=== PATIENT | male | born 1975 | race Caucasian/White ===

== ENCOUNTER 2023-11-05 20:50 | Inpatient (IN) | payer OTHER, SELFPAY ==
[2023-11-05 16:08] VITALS: BP 108/57; BMI 33.5
[2023-11-05 16:39] LABS: % Basophils 0.2 % (0-2); % Eosinophils 0.4 % (0-6); % Immature Granulocytes 0.4 % (0-0.5); % Lymphocytes 6.6 % (20.5-51.1); % Monocytes 9.2 % (1.7-9.3); % Neutrophils 83.2 % (42.2-75.2); Absolute Eosinophils 0.1 10^3/uL (0-0.7); Absolute Immature Granulocytes 0.1 10^3/uL (0-0.05); Absolute Lymphocytes 0.9 10^3/uL (1.2-3.4); Absolute Monocytes 1.3 10^3/uL (0.1-0.6); Absolute Neutrophils 11.3 10^3/uL (1.4-6.5); Hematocrit 42.4 % (39.0-52.0); Hemoglobin 14.3 g/dL (13.0-18.0); Mean Corp Hgb Conc. 33.7 g/dL (33.0-37.0); Mean Corpuscular Hgb 31.6 pg (27.0-31.0); Mean Corpuscular Volume 93.6 fL (80.0-94.0); Mean Platelet Volume 9.5 fL (7.4-10.4); Nucleated Red Blood Cells % 0 % (-); Platelet Count 347 10^3/uL (130-400); Red Blood Cell Count 4.53 10^6/uL (4.70-6.10); Red Cell Dist. Width 12.7 % (11.5-14.5); White Blood Cell Count 13.6 10^3/uL (4.8-10.8)
[2023-11-05 16:48] LABS: Alcohol None Detected; Blood Urea Nitrogen 36 mg/dl (9-20); Calcium 10.8 mg/dl (8.4-10.2); Carbon Dioxide 30 mmol/L (22-30); Chloride 97 mmol/L (98-107); Estimated Creatinine Clearance 18 ml/min; Glucose 142 mg/dl (70-99); Potassium 4.2 mmol/L (3.5-5.1); Sodium 137 mmol/L (135-145); eGFR 11.36
[2023-11-05 17:01] LABS: COVID-19 Antigen Negative (Negative)
--- NOTE | 2023-11-05 17:51 | ED.GENMED ---
History of Present Illness
General
Chief Complaint: Psychiatric Problem
Time Seen by Provider: 11/05/23 17:17
Travel History
Have you had any contact with someone who has COVID-19?: No
Do you have any symptoms of coronavirus? Fever > 100 degrees, chills, cough, shortness of breath, sore throat, loss of taste or smell, muscle aches, or headache?: No
History of Present Illness
History of Present Illness:
Patient presents to the emergency department with suicidal ideation and depressive symptoms. He notes that he was kicked out of his facility today after they found alcohol in his urine. States that he has been having numerous symptoms including
allergic symptoms and nasal congestion. States that he is here to voluntarily commit himself for psychiatric evaluation. He endorses overdosing on his blood pressure medicine as well as a Seroquel 2 days ago. States he took 200 of his losartan at
about 200 of his Seroquel. Denies any gigi pain. Denies any difficulty urinating. Denies any extremity edema.
Past History
Past History
ED Past Medical History: Asthma, HTN and Other (Scarlet fever)
ED Past Surgical History: None
Social History
Tobacco: Smoker
Alcohol: Occasional
Drug: None
Personal: Single
Living: alone
Phy Exam
Physical Exam
Physical Exam:
GENERAL APPEARANCE: NAD, well developed/ well nourished, poorly groomed
EYES lids/conjunctiva normal
EARS/NOSE/THROAT Mucous membranes moist, uvula midline without oral pharyngeal erythema, exudate or swelling
HEAD/NECK normocephalic atraumatic, neck is supple.
RESPIRATORY respiratory effort normal, speaks in full sentences, no accessory muscle use. Lungs clear to auscultation without rhonchi, wheezes, rales
CARDIAC tachycardia, no edema,
ABDOMINAL Soft, ND/NT. No pulsatile masses on exam, rebound tenderness, Shearer sign or pain over Mcburney's point.
MUSCLES/EXTREMITIES No abnormal range of motion, no swelling.
SKIN Warm, pink and dry. No rashes
NEUROLOGICAL Speech is clear and appropriate. Normal level of consciousness. 5/5 strength in all extremities.
PSYCH Normal mood and affect. Judgement/competence is appropriate, endorses SI
Course
Orders/Labs/Results
Orders:
Orders
11/05/23 16:14
1:1 Observation - Suicide/ Violent Behavior As Directed
11/05/23 16:16
EKG [Electrocardiogram (*1)] Urgent
Reason for Study: PreOp
EKG- Treatment ONCE
11/05/23 16:27
Alcohol Urgent
Basic Metabolic Panel Urgent
COVID-19 Antigen Urgent
Source: Nasal Swab
Complete Blood Count/With Diff Urgent
11/05/23 17:47
Urinalysis Reflex To Culture Urgent
Urine Drug Abuse Screen Urgent
0.9% Sodium Chloride 1000 ml [Nss] 1,000 ml IV BOLUS
11/05/23 17:48
Electrocardiogram (*1) Stat
Reason for Study: Other
Other Reason for Exam: overdose
11/05/23 18:10
Acetaminophen Urgent
Comprehensive Metabolic Panel Urgent
PTT Urgent
Salicylate Urgent
Total CK [Creatine Phosphokinase] Urgent
11/05/23 18:42
Urine Creatinine Urgent
Urine Sodium Urgent
Renal & Bladder US [US Renal With Bladder] Urgent
Comment:
Reason For Exam: venkata
11/05/23 18:44
Bladder Scan As Directed
Follow Bladder Retention/Intermittent Cath Algorithm?: Yes
PRN if no void in __ hours: 6
Frequency: Per Retention Algorithm
If Bladder Scan Result >: 400
then:: Straight cath
Straight Cath As Directed
Frequency: Per Retention Algorithm
Additional Instructions: straight cath as needed per acute urinary retention algorithm for 24 hrs
Additional Instructions: for bladder scan greater than 400 mL
Abnormal Lab Results
11/05/23 11/05/23
16:27 18:10
WBC 13.6 H 10^3/uL
(4.8-10.8)
RBC 4.53 L 10^6/uL
(4.70-6.10)
MCH 31.6 H pg
(27.0-31.0)
Abs Immat Gran (auto) 0.1 H 10^3/uL
(0-0.05)
Absolute Neuts (auto) 11.3 H 10^3/uL
(1.4-6.5)
Absolute Lymphs (auto) 0.9 L 10^3/uL
(1.2-3.4)
Absolute Monos (auto) 1.3 H 10^3/uL
(0.1-0.6)
Neutrophils % 83.2 H %
(42.2-75.2)
Lymphocytes % 6.6 L %
(20.5-51.1)
Chloride 97 L mmol/L 97 L mmol/L
(98-107) (98-107)
BUN 36 H mg/dl 37 H mg/dl
(9-20) (9-20)
Creatinine 5.7 H* mg/dL 5.8 H* mg/dL
(0.7-1.3) (0.7-1.3)
Glucose 142 H mg/dl 126 H mg/dl
(70-99) (70-99)
Calcium 10.8 H mg/dl 11.4 H mg/dl
(8.4-10.2) (8.4-10.2)
AST 64 H U/L
(17-59)
ALT 91 H U/L
(0-50)
Salicylates < 1.0 L mg/dl
(2.0-20.0)
Acetaminophen < 10 L ug/ml
(10-30)
11/05/23 16:27
11/05/23 18:10
Vital Signs
Initial and Last Documented VS:
Initial Vital Signs
Temp Pulse Resp BP Pulse Ox
98.5 F 103 22 108/57 99
11/05/23 16:08 11/05/23 16:08 11/05/23 16:08 11/05/23 16:08 11/05/23 16:08
Last Documented Vital Signs
Temp Pulse Resp BP Pulse Ox
98.5 F 103 22 108/57 99
11/05/23 16:08 11/05/23 16:08 11/05/23 16:11/05/23 16:08 11/05/23 16:08
*Critical Care Note
Total Time (30-74mins, 75-104mins- exclusive of procedures): Not Applicable
ED Attending Note
ED Attending Note
ED Attending Note:
hx of asthma, HTN, dpression and anxiety
got kicked out of [facility] today after they found alcohol in his urine
presents here requesting 201 for voluntary commission
however, he states he took 270 100mg losartan tabs and 40 25mg seroquel (alternating story) on Friday in a suicide attempt
no evidence of acute toxicity given lack of hypotension, hypertonia/NMS symptoms
labs are showing VENKATA with bun/creatinine of 37/5.8, bicarb is 30, patient is making urine, no indication for emergent dialysis
he looks well overall. normal BP, slightly tachycardic around 100. EKG with normal qtc and CO interval, normal QRS duration
possible intrinsic renal disease from overdose vs hypotensive 2 days ago and possibly had ATN
giving IV fluids, renal US pending, send urine studies
salicylates and acetaminophen levels negative
will likely need nephro consult
admitted to hospitalist for further management
-
Portions of this chart may have been created with voice recognition software.� Occasional wrong word or��sound alike� substitutions may have occurred due to the inherent limitations of voice recognition software.
Discharge Plan
Departure
Patient Disposition: Admit
Date of Disposition: 11/05/23
Time of Disposition: 19:29
Admit to doctor: Fabrizio
Presentation/result/management discussed w/ accepting MD/DO: Hospitalist
Patient with high blood pressure during this ER visit?: No
Discharge Problem:
VENKATA (acute kidney injury), Depression
Prescriptions:
No Action
amlodipine 5 MG tablet
5 mg PO DAILY
albuterol sulfate 1 PUFF HFA aerosol inhaler
2 puff inhalation R Q4HPRN PRN (Reason: sob)
fluticasone propionate 1 SPRAY spray,suspension
1 spray intranasal DAILYPRN PRN (Reason: congestion)
quetiapine 25 mg Tablet
25 mg PO HS
losartan-hydrochlorothiazide 100-25 mg Tablet
1 tab PO DAILY
escitalopram oxalate 10 mg Tablet
10 mg PO DAILY
Dulera 100-5 mcg/actuation Hfa Aerosol Inhaler
2 puff INHALATION R BID
budesonide 0.5 MG/2 ML suspension for nebulization
0.5 mg inhalation R DAILY
Referrals:
Samir Ayala MD [Family Provider] -
Interventions
Interventions:
*Risk Screen - Suicide Last Done: 11/05/23 16:08
*General Assessment Last Done: 11/05/23 18:18
*Neglect/Abuse Screening Last Done: 11/05/23 16:08
ED- Fall Risk Assessment Last Done: 11/05/23 16:08
*ED COVID-19 Vaccine History Last Done: 11/05/23 18:18
ED-Psychological Assessment Last Done: 11/05/23 18:29
Discharge Date and Time
Print Language: HUNGARIAN
[2023-11-05] MEDS: NSS 1000 IV ×2 (18:11→23:20)
[2023-11-05 18:36] LABS: ALT (SGPT) 91 U/L (0-50); AST (SGOT) 64 U/L (17-59); Acetaminophen < 10 ug/ml (10-30); Albumin 4.1 g/dl (3.5-5.0); Alkaline Phosphatase 124 U/L (38-126); Blood Urea Nitrogen 37 mg/dl (9-20); Calcium 11.4 mg/dl (8.4-10.2); Carbon Dioxide 30 mmol/L (22-30); Chloride 97 mmol/L (98-107); Creatine Phosphokinase 78 U/L (55-170); Estimated Creatinine Clearance 17 ml/min; Glucose 126 mg/dl (70-99); Salicylate < 1.0 mg/dl (2.0-20.0); Sodium 135 mmol/L (135-145); Total Bilirubin 1.1 mg/dl (0.2-1.3); Total Protein 6.9 g/dl (6.3-8.2); eGFR 11.12
[2023-11-05 18:39] LABS: APTT 28.8 Sec (23.4-35.0)
--- NOTE | 2023-11-05 20:31 | HPS.HSE ---
Addendum entered and electronically signed by Hamilton Dinh DO 11/05/23 22:43:
Patient seen and examined independently. Agree with findings and plan as set forth by Lore Moss PA-C.
Patient is a 48y M with PMH significant for hypertension and depression / PTSD who presents to ED requesting voluntary psychiatric evaluation. Patient was most recently a resident at [facility]. He states that he was ejected from
that facility today - apparently for having alcohol in a urine sample. Patient notes that he took a large amount of pills on FRIDAY in an attempt to end his life. He states that he took #270 tabs of losartan/HCT and #40 tabs of quetiapine late
Friday evening. He states that he slept all day on Friday, but then notes that he actually had several appointments and interacted with several people throughout the day on Friday. he also notes that he developed N/V/D and had multiple bouts of
emesis and loose stool Friday.
Patient notes prior suicide attempts including ingestions and strangulation.
He currently denies active suicidal ideation and is her to voluntarily seek psychiatric assistance.
Evaluation in the ED reveals patient to have significant VENKATA.
Ass:
VENKATA - Likely due to ARB overdose +/- hypotension and ATN due to meds and volume losses
Hypercalcemia
Prolonged QTc
N/V/D - Likely med induced / overdose induced
Intentional Overdose
Major Depression / PTSD
Benign Hypertension
Asthma without Acute Exacerbation
Plan:
Admit for further evaluation and treatment.
Hold any further losartan / HCT as well as other BP medications.
IVFs overnight.
Renal US is unremarkable.
Nephrology evaluation.
Follow for improvement in labs / lytes.
Hold QT prolonging medications as well for now.
Monitor on telemetry.
Psych evaluation in the AM.
1:1 pending Psych eval.
Original Note:
Family Physician
-
Family Physician: Samir Ayala
Chief Complaint
-
Depression
History of Present Illness
This is a 48 year old male with a past medical history of anxiety, depression, PTSD, hypertension, asthma, and prior suicide attempt in 2022 who presents to the ED requesting a psychiatric evaluation due to ongoing suicidal ideation and recent
suicide attempt. He states he consumed 270 pills losartan 100mg and 40 pills of Seroquel 20mg two days ago. He admits to vomiting and diarrhea after consuming the medications. He also admits to hallucination after consumption. He is not able to tell
if he has changes in urination due to his focus being primarily on episodes of vomiting and diarrhea which have been occurring concurrently to urination. He reports attempting to drink fluids as feels very thirsty. He denies any prior history of
kidney problems.
Medical History
Past Medical History
Past Medical History: Reports Other
Additional Past Medical History:
Anxiety / Depression / PTSD
Essential Hypertension
Asthma
Past Surgical History: Reports None
Social History
Tobacco: Other (Occasional Cigarette)
Alcohol: Occasional
Family History
Family History: Not pertinent
Allergies / Home Medications
Allergies reflects when Allergies were last updated in [employer].
Home Medications with original date entered in [employer]
Allergy/Medication List:
Allergies
Allergy/AdvReac Type Severity Reaction Status Date / Time
No Known Allergies Allergy Verified 11/05/23 16:07
Home Medications
albuterol sulfate 90 mcg/actuation aerosol inhaler 2 puff inhalation R Q4HPRN PRN sob 01/29/21
amlodipine 5 mg tablet 5 mg PO DAILY Blood pressure 01/29/21
fluticasone propionate 50 mcg/actuation nasal spray,suspension 1 spray intranasal DAILYPRN PRN congestion 01/29/21
budesonide 0.5 mg/2 mL suspension for nebulization 0.5 mg inhalation R DAILY 11/05/23
escitalopram oxalate 10 mg tablet 10 mg PO DAILY 11/05/23
losartan 100 mg-hydrochlorothiazide 25 mg tablet 1 tab PO DAILY 11/05/23
mometasone-formoterol HFA 100 mcg-5 mcg/actuation aerosol inhaler (Dulera) 2 puff inhalation R BID 11/05/23
quetiapine 25 mg tablet 25 mg PO HS sleep 11/05/23
Review of Systems
-
A 12 point ROS was completed and negative except as noted: Yes
Constitutional: Denies Fever or Chills
Respiratory: Denies Cough or Trouble Breathing
Cardiac: Denies Chest Pain or Palpitations
Abdomen/GI: Reports Nausea, Vomiting and Diarrhea; Denies Abdominal Pain
Physical Exam
Vital Signs
Vital Signs
Temp Pulse Resp BP Pulse Ox
98.5 F 103 22 108/57 99
11/05/23 16:08 11/05/23 16:08 11/05/23 16:08 11/05/23 16:08 11/05/23 16:08
Physical Exam
General: Comfortable and Conversant
HEENT: Moist mucous membranes and Atraumatic
Respiratory: Clear and Non Labored Respirations
Cardiac: S1/S2 and Regular Rhythm
GI: Soft, Non Tender and Other (Protuberant)
Rectal: Deferred by Provider
Musculoskeletal: No Clubbing, No Cyanosis and No Edema
Skin: Warm and Dry
Neuro: Awake, Alert, Oriented and Nonfocal/grossly intact
Laboratory Results
-
11/05/23 16:27
11/05/23 18:10
Laboratory Results
APTT 28.8 Sec (23.4-35.0) 11/05/23 18:10
Total Bilirubin 1.1 mg/dl (0.2-1.3) 11/05/23 18:10
AST 64 U/L (17-59) H 11/05/23 18:10
ALT 91 U/L (0-50) H 11/05/23 18:10
Alkaline Phosphatase 124 U/L (38-126) 11/05/23 18:10
Data Reviewed
-
Lab Data: Labs Reviewed by me
Impression/Plan
-
Acute Kidney Injury
-Consult Nephrology
-Place Culver catheter
-Continue IVFs
Hypercalcemia
-Stop HCTZ
-Continue IVFs
-If calcium remains elevated proceed with additional work-up
Prolonged QT
-Monitor on Telemetry
-Recheck ECG in AM
-Avoid QT prolonging medications
Depression with Recent Suicide Attempt
-Consult Psych
-Continue 1:1 Observation
-Hold Lexapro and Seroquel until seen by Psych
Essential Hypertension
-Hold lisinopril/HCTZ due to VENKATA
-Hold amlodipine for now - Can resume if BP begins to trend upwards
Asthma, no acute exacerbation
-Continue Dulera
DVT proph: SC Heparin
Code Status: Full Code
[2023-11-05 21:15] LABS: Urine Albumin Trace (Neg - Trace); Urine Bilirubin 1+ (Negative); Urine Character Clear (Clear); Urine Color Yellow; Urine Glucose Negative (Negative); Urine Ketone Negative (Negative); Urine Leukocyte Trace (Negative); Urine Nitrite Negative (Negative); Urine Occult Blood Trace (Negative); Urine Urobilinogen Negative (Neg - 1+); Urine pH 6.5 (5.0-9.0)
[2023-11-05 21:23] LABS: Urine Squamous Cell 0-2 /LPF (Few)
[2023-11-05 21:24] LABS: Urine Red Blood Cell 0-2 /HPF (0-2)
[2023-11-05 21:25] LABS: Amphetamines Negative (Negative); Barbiturates Negative (Negative); Benzodiazepines Negative (Negative); Buprenorphine Negative (Negative); Cocaine Negative (Negative); Marijuana Negative (Negative); Methadone Negative (Negative); Methamphetamines Negative (Negative); Opiates Negative (Negative); Phencyclidine Negative (Negative); Tricyclic Antidepressants Positive (Negative)
[2023-11-05 21:29] LABS: Urine Sodium 66 mmol/L (30-90)
[2023-11-05 21:48] VITALS: BP 130/87; BMI 33.6
[2023-11-05] MEDS: VENTOLIN NEBULES 2.5 MG INH (23:12)
[2023-11-05] MEDS: HEPARIN 5000 UNITS SC (23:32)
[2023-11-05 23:55] VITALS: BP 113/87
--- NOTE | 2023-11-06 01:35 | PTCARENOTE ---
Pt received from ED around 2134 via w/staff for 1:1 obsveration. AAOx3, tangential speech. Telemetry - SR w/BBC (ST at times). Admission and assessment completed. Plan of care discussed. Oriented to environment. Pt denies suicidal ideation
at present, expresses desire for help. 16 F burrows catheter placed without difficulty using sterile technique. Pt tolerated. Clear yellow urine observed. IVF running via #20 RAC without complication. Safe environment maintainted. Plan of care
ongoing.
[2023-11-06 03:21] VITALS: BP 110/85
[2023-11-06] MEDS: NSS 1000 IV ×2 (06:23→16:19)
[2023-11-06 07:18] LABS: Hematocrit 38.5 % (39.0-52.0); Hemoglobin 12.6 g/dL (13.0-18.0); Mean Corp Hgb Conc. 32.7 g/dL (33.0-37.0); Mean Corpuscular Hgb 31.3 pg (27.0-31.0); Mean Corpuscular Volume 95.8 fL (80.0-94.0); Mean Platelet Volume 9.6 fL (7.4-10.4); Platelet Count 268 10^3/uL (130-400); Red Blood Cell Count 4.02 10^6/uL (4.70-6.10); Red Cell Dist. Width 12.7 % (11.5-14.5)
[2023-11-06] MEDS: VENTOLIN NEBULES 2.5 MG INH (07:33)
[2023-11-06] MEDS: SYMBICORT 80/4.5 MCG INHALER INH ×2 (07:33→07:47)
[2023-11-06] MEDS: PULMICORT 0.5 MG INH (07:33)
[2023-11-06 07:45] LABS: Blood Urea Nitrogen 39 mg/dl (9-20); Calcium 10.3 mg/dl (8.4-10.2); Carbon Dioxide 31 mmol/L (22-30); Chloride 100 mmol/L (98-107); Estimated Creatinine Clearance 18 ml/min; Glucose 109 mg/dl (70-99); Magnesium 2.2 mg/dl (1.6-2.3); Phosphorus 6.4 mg/dl (2.5-4.5); Potassium 4.5 mmol/L (3.5-5.1); Sodium 137 mmol/L (135-145); eGFR 11.36
[2023-11-06 07:55] VITALS: BP 147/86
[2023-11-06] MEDS: HEPARIN 5000 UNITS SC ×2 (09:55→16:19)
--- NOTE | 2023-11-06 10:42 | CON.MD ---
Addendum entered and electronically signed by Stefano Davis MD 11/06/23 11:24:
check b12 and folate given macrocytosis.
Original Note:
Consultation - Medical
-
patient seen chart reviewed. patient is a 48 yo male w hx of depression anxiety and ptsd. 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 he made a suicide attempt a year ago via pills and was hosp last year. he had been living at
[facility] which is a fairly independent facility. he had had several violations of the no etoh rule and was evicted.. he admits to once in a while adding vodka to his iced tea but the straw that broke the camel's back was staff finding
a bottle of etoh he hadn't opened yet. i did talk brioefly w [facility] staff who verify this. he did have a cm but was fearful they would not help him in time and that he would be homeless. he 'wanted to sleep and not wake up' and overdosed .he changed
his mind about eternal sleep and sought hospitalization. he was found to have serious sequelae from od of losartan and seroquel (creatinine over five). he is no longer suicidal and is interested in psych hosp when med cleared. patient has issues w
sleep appetite is good. no psychosis his enjoyment is hampered by life stresses, anxiety. has ptsd sx of nightmares flashbacks although less frequent than years past
past psych hx was being followed at [facility]. was taking he thinks lexapro along w seroquel for sleep one hosp see above.
medical hx acute kidney failure cr over five ecg w long qtc psoriasis obesity justin asthma htn gerd transaminases sl elevated likely this and cr due to od tox + for tca often a false +
family hx adopted
substance abuse etoh last use mid september. says there were periods in his life where he would drink alcoholically but in the distant past. denies other substance abuse. see above never had dt's or sz
social resides at [facility]. 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 no family support. mom and bro . div had a gf but she was etoh abuser. no hx physical or sexual trauma. some legal hx in the past
mse patient was awakened from sleep . was very cooperative. he is a bit on the sleepy side but could adequately participate in interview. speech nl rate and tone goal oriented no psychosis affect ok mood is depressed and anxious denies si and i
do believe him at this point aver intelligence insight judgment impaired
dx unspecified depression ptsd hx etoh abuse
recommendations can dc one to one. do not see patient as suicide risk at present. he is cooperative verbalizing need and desire for rx. will need to get through medical rx at this point given creatinine which hopefully will improve. no psych
meds presribed at present. could use ativan prn anxiety /agitation. continue melatonin for sleep. ultimately would seek psych hosp when medically cleared. will follow
[2023-11-06 11:28] VITALS: BP 140/97
--- NOTE | 2023-11-06 11:54 | W.PN.HOSP.TC ---
Today's Communication/Plan
-
Continue holding antihypertensives
Continue to monitor, no need for 1:1 sitter as per psychiatry
Appreciate nephrology and psychiatry
Assessment / Plan
Assessment / Plan
Physical Exam
General: Not in acute distress
HEENT: Normocephalic
Respiratory: Clear to Auscultation Bilaterally
Cardiac: S1/S2 and Regular Rhythm
GI: Soft, Non Tender. Positive bowel sounds.
Musculoskeletal: No Cyanosis and No Edema
Skin: Warm and Dry
Neuro: Awake, Alert, Oriented and Nonfocal/grossly intact

Assessment/Plan
Acute Kidney Injury
-Creatinine baseline 1.1, now 5.7
-Nephrology consulted, recommendations appreciated
-Continue Culver Catheter
-Continue IV Fluids
-No hydronephrosis on renal ultrasound
ARB, HCTZ, and Seroquel overdose
Hypercalcemia
Hyperphosphatemia
-Stop HCTZ
-Continue IVFs
-Vitamin D and PTH levels
-Nephrology consulted
Depression with Recent Suicide Attempt
-Psychiatry consulted, recommendations appreciated
-No 1:1 sitter needed at this time
-Hold Lexapro and Seroquel until seen by Psych
Macrocytic Anemia
-Check Vitamin B12 and Folate levels
Prolonged QT
-Monitor on Telemetry
-Recheck ECG in AM
-Avoid QT prolonging medications
Essential Hypertension
-Hold lisinopril/HCTZ due to VENKATA
-Hold amlodipine for now - Can resume if BP begins to trend upwards
Asthma, no acute exacerbation
-Continue Dulera
DVT proph: SC Heparin
Code Status: Full Code
Anticipated Discharge: 24 - 48 hours
Subjective/Interval History
-
Date of Service: November 06, 2023
Patient was seen and examined. He was sleeping at the time he was seen, no new significant symptoms or complaints reported.
Objective Data
-
Labs:
Laboratory Results
11/06/23
06:30
WBC 10.0
Hgb 12.6 L
Hct 38.5 L
Plt Count 268 D
Sodium 137
Potassium 4.5
Chloride 100
Carbon Dioxide 31 H
BUN 39 H
Creatinine 5.7 H*
Glucose 109 H
Calcium 10.3 H
Vital Signs:
Vital Signs
Temp Pulse Resp BP Pulse Ox
98.4 F 81 16 140/97 94
11/06/23 11:28 11/06/23 11:28 11/06/23 11:28 11/06/23 11:28 11/06/23 11:28
I&O
11/05/23 11/06/23 11/07/23
06:59 06:59 06:59
Intake Total 2200 / 2200
Output Total 752 / 752
Balance 1448 / 1448
--- NOTE | 2023-11-06 11:56 | W.CON.NEPH ---
Addendum entered and electronically signed by Bridget Severino MD 11/06/23 15:46:
during the visit pt wishes no life sustaining measures such as [employer] but he would like to speak to his family preservation caseworker(out pt) to make decision
Original Note:
Consultation
-
Date/Time Consultation Requested: 11/05/234
Date/Time Consultation Performed: 11/06/23 1145
Requesting Provider: Hamilton Delacruz
Performing Provider: Bridget Friedman
Reason for Consultation: VENKATA
Medical History
-
Chief Complaint: Depression
History of Present Illness:
Patient is a 48y M with PMH significant for hypertension on Losartan,HCTZ, AMlodipine, and depression / PTSD on Lexapro, Seroquel, Asthma on inhalers who presents to ED requesting voluntary psychiatric evaluation on 11/04. Patient was most
recently a resident at [facility]. He states that he was ejected from that facility today - apparently for having alcohol in a urine sample. Patient notes that he took a large amount of pills on FRIDAY in an attempt to end his life.
He states that he took #270 tabs of losartan/HCT and #40 tabs of quetiapine late Friday evening. He states that he slept all day on Friday, but then notes that he actually had several appointments and interacted with several people throughout the
day on Friday. he also notes that he developed N/V/D and had multiple bouts of emesis and loose stool Friday with decreased po intake.
Patient notes prior suicide attempts including ingestions and strangulation.
He currently denies active suicidal ideation and is her to voluntarily seek psychiatric assistance.
Evaluation in the ED reveals patient to have significant VENKATA cr of 5.8. He has no active n/v today. no abd pain or cp or sob. NO fever or cough.
Past Medical History
anxiety, depression, PTSD, hypertension, asthma, and prior suicide attempt in 2022
Past Surgical History: None
Social History
Tobacco: Other (occasional cigerette)
Alcohol: Occasional (previously heavy)
Family History
adopted
Family History: Not Pertinent
Allergies / Home Medications
Allergy/AdvReac Type Severity Reaction Status Date / Time
No Known Allergies Allergy Verified 11/05/23 16:07
�Medication �Instructions �Recorded �Confirmed �Type
albuterol sulfate 90 mcg/actuation 2 puff inhalation R Q4HPRN PRN sob 01/29/21 11/05/23 History
aerosol inhaler
amlodipine 5 mg tablet 5 mg PO DAILY Blood pressure 01/29/21 11/05/23 History
fluticasone propionate 50 1 spray intranasal DAILYPRN PRN 01/29/21 11/05/23 History
mcg/actuation nasal congestion
spray,suspension
budesonide 0.5 mg/2 mL suspension 0.5 mg inhalation R DAILY 11/05/23 11/05/23 History
for nebulization
escitalopram oxalate 10 mg tablet 10 mg PO DAILY 11/05/23 11/05/23 History
losartan 100 1 tab PO DAILY 11/05/23 11/05/23 History
mg-hydrochlorothiazide 25 mg tablet
mometasone-formoterol HFA 100 2 puff inhalation R BID 11/05/23 11/05/23 History
mcg-5 mcg/actuation aerosol
inhaler (Dulera)
quetiapine 25 mg tablet 25 mg PO HS sleep 11/05/23 11/05/23 History
Review of Systems
-
All complete 12 point ROS have been inquired and found negative other than stated in HPI
Physical Exam
Vital Signs
Vital Signs
Temp Pulse Resp BP Pulse Ox
98.4 F 81 16 140/97 94
11/06/23 11:28 11/06/23 11:28 11/06/23 11:28 11/06/23 11:28 11/06/23 11:28
Lab Results
WBC 10.0 10^3/uL (4.8-10.8) 11/06/23 06:30
RBC 4.02 10^6/uL (4.70-6.10) L 11/06/23 06:30
Hgb 12.6 g/dL (13.0-18.0) L 11/06/23 06:30
Hct 38.5 % (39.0-52.0) L 11/06/23 06:30
Plt Count 268 10^3/uL (130-400) D 11/06/23 06:30
Sodium 137 mmol/L (135-145) 11/06/23 06:30
Potassium 4.5 mmol/L (3.5-5.1) 11/06/23 06:30
Chloride 100 mmol/L (98-107) 11/06/23 06:30
Carbon Dioxide 31 mmol/L (22-30) H 11/06/23 06:30
BUN 39 mg/dl (9-20) H 11/06/23 06:30
Creatinine 5.7 mg/dL (0.7-1.3) H* 11/06/23 06:30
eGFR 11.36 11/06/23 06:30
Glucose 109 mg/dl (70-99) H 11/06/23 06:30
Calcium 10.3 mg/dl (8.4-10.2) H 11/06/23 06:30
Phosphorus 6.4 mg/dl (2.5-4.5) H 11/06/23 06:30
Albumin 4.1 g/dl (3.5-5.0) 11/05/23 18:10
Renal US:
Rt 10.9cm, left 12.1cm
IMPRESSION: Normal appearance of both kidneys.
Bladder is not distended. Left ureteral jet is visualized, but right ureteral jet is not visualized.
Incidental note of cholelithiasis.
Physical Exam
General: Awake, Alert, Oriented, AOx3 and No Distress
HEENT: EOMI, Anicteric and Conjunctivae Clear
Respiratory: Clear, Normal Excursion and Nonlabored Respirations
Cardiac: S1/S2 and Regular Rate/Rhythm
Breast: Deferred by me
Abdomen: Soft, Nontender and Nondistended
Musculoskeletal: No Cyanosis and No Edema
Skin: Other (seborrhic dermatitis on face)
Neuro: Nonfocal/Grossly Intact
Psych: Mood/afflect pleasant and Appropriate
Data Reviewed
-
Radiology: Report Reviewed by me and Discussed with Patient
Labs: Labs Reviewed by me and Discussed with Patient
Assessment/Plan
-
IMP:
VENKTAA
ARB, HCTZ, seroquel overdose
Hypercalcemia
Prolonged QTc
N/V/D - Likely med induced / overdose induced
Intentional Overdose
Major Depression / PTSD
Benign Hypertension
Asthma without Acute Exacerbation
Obesity
Plan:
A/w intentional OD of Losartan-HCTZ and Seroquel on 11/02, presented to ER on 11/04
VENKATA-cr baseline 1.1 in 02/2023, now at 5.7
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
renal US with out hydro , cpk low
cont IVF, decrease rate to 100cc/hr, non oliguric with burrows
no emergent need of HD, hopefully can escape
mild hypercalcemia-check vit D and PTH-improving with IVF
hyperphosphatemia-monitor labs
BP stable holding meds
follow h/h, mild met alkalosis
psych follows
d/w pt
[2023-11-06 13:05] LABS: Protein/creatinine Ratio 0.4; Urine Protein 27 mg/dl
--- NOTE | 2023-11-06 14:32 | CM ---
Reviewed chart, met with patient to obtain information for assessment. Patient stated that he did live in a CRR run by [facility] but was kicked out due to violating the ETOH rule. Patient is very upset that he did this as health unit coordinator to his expulsion and
prior to his discharge, he overdosed as he was so upset. Patient stated that he also had a suicide attempt in 2022. He had a stay at [facility] which he found to be helpful and [facility] connected him to [facility] where he still seeks services but just is
unable to live in their community due to alcohol.
Patient stated that he was at [facility] prior to the CRR but was found to be 'too high functioning' so he was transferred.
Patient stated that he is independent at baseline. He can complete his ADLs and personal care. He receives SNAP benefits and has a friend who takes him shopping for groceries and takes him to his appointments.
He denied any DME.
Patient stated that he attempted suicide as he was so distraught that he broke the rules at [facility] and he was apprehensive about the possibility of being homeless.
Patient stated that his CM that still follows him from [facility] is, Deysi Krishnamurthy (number in chart). Patient stated that he would like to be discharged from acute care and go straight to a psychiatric facility as he wants the help. He expressed that
he would like to go to [facility] again. Will make referrals when he is medically cleared.
Placed a call to Deysi and stated that she is working on finding housing for patient but it has been an uphill jj as there are wait lists that exceed six months.
Deysi is agreeable to updates and will attempt to continue to assist patient when he transfers out of acute care.
Plan: Case management will continue to follow and assist with discharge planning. Patient is voluntarily seeking inpatient psych.
[2023-11-06 14:48] LABS: Body Fluid for Eosinophils No Eosinophils seen
[2023-11-06 15:50] VITALS: BP 149/98
[2023-11-06 19:20] VITALS: BP 169/108
[2023-11-06] MEDS: SYMBICORT 80/4.5 MCG INHALER 2 PUFF INH (21:04)
[2023-11-06] MEDS: MELATONIN 5 MG PO (22:16)
[2023-11-06 23:55] VITALS: BP 138/88
[2023-11-07] MEDS: NSS 1000 IV (01:46)
[2023-11-07] MEDS: HEPARIN SC ×3 (01:47→23:06)
[2023-11-07 03:36] VITALS: BP 166/106
[2023-11-07 06:00] VITALS: BMI 33.2
[2023-11-07 06:14] LABS: Hematocrit 38.6 % (39.0-52.0); Hemoglobin 12.7 g/dL (13.0-18.0); Mean Corp Hgb Conc. 32.9 g/dL (33.0-37.0); Mean Corpuscular Hgb 31.6 pg (27.0-31.0); Mean Platelet Volume 9.4 fL (7.4-10.4); Platelet Count 275 10^3/uL (130-400); Red Blood Cell Count 4.02 10^6/uL (4.70-6.10); Red Cell Dist. Width 12.1 % (11.5-14.5); White Blood Cell Count 9.2 10^3/uL (4.8-10.8)
[2023-11-07 07:02] LABS: Vitamin D, 25-OH*** 13.2 ng/mL (30-80)
[2023-11-07 07:06] LABS: ALT (SGPT) 63 U/L (0-50); AST (SGOT) 33 U/L (17-59); Albumin 3.7 g/dl (3.5-5.0); Alkaline Phosphatase 106 U/L (38-126); Blood Urea Nitrogen 36 mg/dl (9-20); Calcium 10.3 mg/dl (8.4-10.2); Carbon Dioxide 29 mmol/L (22-30); Chloride 104 mmol/L (98-107); Estimated Creatinine Clearance 26 ml/min; Glucose 105 mg/dl (70-99); Potassium 4.6 mmol/L (3.5-5.1); Sodium 138 mmol/L (135-145); Total Bilirubin 0.5 mg/dl (0.2-1.3); Total Protein 6.3 g/dl (6.3-8.2); eGFR 17.91
[2023-11-07 07:26] VITALS: BP 138/96
[2023-11-07] MEDS: SYMBICORT 80/4.5 MCG INHALER 2 PUFF INH ×2 (07:44→20:16)
[2023-11-07] MEDS: PULMICORT 0.5 MG INH (07:46)
[2023-11-07 07:52] LABS: Folate 17.5 ng/ml (2.76-20); Vitamin B12 493 pg/ml (239-931)
[2023-11-07] MEDS: HEPARIN 5000 UNITS SC ×2 (09:13→15:09)
[2023-11-07 11:00] VITALS: BP 156/99
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
--- NOTE | 2023-11-07 12:17 | W.PN.NEPH.PH ---
Today's Communication / Plan
-
Observe
Follow BMP
Assessment/Plan
-
IMP:
VENKATA
ARB, HCTZ, seroquel overdose
Hypercalcemia
Prolonged QTc
N/V/D - Likely med induced / overdose induced
Intentional Overdose
Major Depression / PTSD
Benign Hypertension
Asthma without Acute Exacerbation
Obesity
Plan:
A/w intentional OD of Losartan-HCTZ and Seroquel on 11/02, presented to ER on 11/04
VENKATA-cr baseline 1.1 in 02/2023, was at 5.7, now down to 3.9
Hemodynamically stable
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
renal US with out hydro , cpk low
mild hypercalcemia-check vit D and PTH-improving with IVF
hyperphosphatemia-monitor labs
BP stable holding meds
follow h/h, mild met alkalosis
psych follows
d/w pt
-
-
Date of Service: November 07, 2023
CC / HPI / ROS
-
Chief Complaint:
Acute kidney injury
History of Present Illness:
Creatinine down to 3.9
Hemodynamically stable
Review of Systems:
Grossly nonoliguric
Labs
-
Labs:
WBC 9.2 10^3/uL (4.8-10.8) 11/07/23 05:44
RBC 4.02 10^6/uL (4.70-6.10) L 11/07/23 05:44
Hgb 12.7 g/dL (13.0-18.0) L 11/07/23 05:44
Hct 38.6 % (39.0-52.0) L 11/07/23 05:44
Plt Count 275 10^3/uL (130-400) 11/07/23 05:44
Sodium 138 mmol/L (135-145) 11/07/23 05:44
Potassium 4.6 mmol/L (3.5-5.1) 11/07/23 05:44
Chloride 104 mmol/L (98-107) 11/07/23 05:44
Carbon Dioxide 29 mmol/L (22-30) 11/07/23 05:44
BUN 36 mg/dl (9-20) H 11/07/23 05:44
Creatinine 3.9 mg/dL (0.7-1.3) H 11/07/23 05:44
eGFR 17.91 11/07/23 05:44
Glucose 105 mg/dl (70-99) H 11/07/23 05:44
Calcium 10.3 mg/dl (8.4-10.2) H 11/07/23 05:44
Phosphorus 6.4 mg/dl (2.5-4.5) H 11/06/23 06:30
Albumin 3.7 g/dl (3.5-5.0) 11/07/23 05:44
Physical Exam
-
Vital Signs:
Vital Signs
Temp Pulse Resp BP Pulse Ox
98.6 F 80 16 138/96 98
11/07/23 07:26 11/07/23 07:49 11/07/23 07:49 11/07/23 07:26 11/07/23 09:30
Cardiovascular:: Regular rate and rhythm
Respiratory:: Bilateral: CTA
Lung Excursion:: Normal
Abdomen:: Nontender and Soft
Bowel Sounds:: Normal
Extremity Edema:: None: Bilateral:
Culver Catheter: Yes
--- NOTE | 2023-11-07 13:22 | W.PN.HOSP.TC ---
Today's Communication/Plan
-
Continue to monitor BMP
Status post IV fluids
Appreciate nephrology and psychiatry
Inpatient psychiatry placement pending
Assessment / Plan
Assessment / Plan
Physical Exam
General: Not in acute distress
HEENT: Normocephalic
Respiratory: Clear to Auscultation Bilaterally
Cardiac: S1/S2 and Regular Rhythm
GI: Soft, Non Tender. Positive bowel sounds.
Musculoskeletal: No Cyanosis and No Edema
Skin: Warm and Dry
Neuro: Awake, Alert, Oriented and Nonfocal/grossly intact

Assessment/Plan
Acute Kidney Injury
-Creatinine baseline 1.1, now: 5.7-->3.9
-Nephrology consulted, recommendations appreciated
-Continue Culver Catheter
-Status post IV fluids
-No hydronephrosis on renal ultrasound
ARB, HCTZ, and Seroquel overdose
Hypercalcemia
Hyperphosphatemia
-Stop HCTZ
-Continue IVFs
-Low Vitamin D level noted
-PTH level pending
-Nephrology consulted, recommendations appreciated
Depression with Recent Suicide Attempt
-Psychiatry consulted, recommendations appreciated
-No 1:1 sitter needed at this time
-Hold Lexapro and Seroquel until seen by Psych
-Inpatient psych placement
Macrocytic Anemia
-Vitamin B12 noted
-Folate level normal
Prolonged QT
-Monitor on Telemetry
-Monitor QTc through EKGs
-Avoid QT prolonging medications
Essential Hypertension
-Hold lisinopril/HCTZ due to VENKATA
-Hold amlodipine for now - Can resume if BP begins to trend upwards
Asthma, no acute exacerbation
-Continue Dulera
DVT proph: SC Heparin
Code Status: Full Code
Anticipated Discharge: > 48 hours
Subjective/Interval History
-
Date of Service: November 07, 2023
Patient was seen and examined. He denied any new significant symptoms.
Objective Data
-
Labs:
Laboratory Results
11/07/23
05:44
WBC 9.2
Hgb 12.7 L
Hct 38.6 L
Plt Count 275
Sodium 138
Potassium 4.6
Chloride 104
Carbon Dioxide 29
BUN 36 H
Creatinine 3.9 H
Glucose 105 H
Calcium 10.3 H
Total Bilirubin 0.5
AST 33
ALT 63 H
Alkaline Phosphatase 106
Vital Signs:
Vital Signs
Temp Pulse Resp BP Pulse Ox
98.0 F 79 16 156/99 92
11/07/23 11:00 11/07/23 11:00 11/07/23 11:00 11/07/23 11:00 11/07/23 11:00
I&O
11/06/23 11/07/23 11/08/23
06:59 06:59 06:59
Intake Total 2200 / 2200 1600 / 1600
Output Total 752 / 752 4000 / 4000
Balance 1448 / 1448 -2400 / -2400
[2023-11-07 14:46] VITALS: BP 153/114
[2023-11-07 19:10] VITALS: BP 161/112
[2023-11-07 23:30] VITALS: BP 162/113
[2023-11-08] MEDS: COMPAZINE 5 MG IV (00:18)
[2023-11-08] MEDS: MELATONIN 5 MG PO ×2 (00:19→23:12)
[2023-11-08 03:20] VITALS: BP 156/102
[2023-11-08 04:00] VITALS: BP 162/90
[2023-11-08 06:00] VITALS: BMI 33.2
[2023-11-08 06:46] LABS: Hematocrit 40.1 % (39.0-52.0); Hemoglobin 13.5 g/dL (13.0-18.0); Mean Corp Hgb Conc. 33.7 g/dL (33.0-37.0); Mean Platelet Volume 9.5 fL (7.4-10.4); Platelet Count 300 10^3/uL (130-400); Red Blood Cell Count 4.22 10^6/uL (4.70-6.10); White Blood Cell Count 8.8 10^3/uL (4.8-10.8)
[2023-11-08 07:00] VITALS: BP 136/96; BP 142/101
[2023-11-08 07:11] LABS: ALT (SGPT) 50 U/L (0-50); AST (SGOT) 30 U/L (17-59); Albumin 4.1 g/dl (3.5-5.0); Alkaline Phosphatase 103 U/L (38-126); Blood Urea Nitrogen 38 mg/dl (9-20); Calcium 10.8 mg/dl (8.4-10.2); Carbon Dioxide 25 mmol/L (22-30); Chloride 103 mmol/L (98-107); Estimated Creatinine Clearance 33 ml/min; Glucose 114 mg/dl (70-99); Magnesium 1.8 mg/dl (1.6-2.3); Potassium 4.6 mmol/L (3.5-5.1); Sodium 138 mmol/L (135-145); Total Bilirubin 0.4 mg/dl (0.2-1.3); Total Protein 6.9 g/dl (6.3-8.2); eGFR 23.59
[2023-11-08] MEDS: PULMICORT 0.5 MG INH (08:27)
[2023-11-08] MEDS: SYMBICORT 80/4.5 MCG INHALER 2 PUFF INH ×2 (08:27→19:32)
[2023-11-08] MEDS: HEPARIN 5000 UNITS SC ×3 (09:42→23:12)
--- NOTE | 2023-11-08 14:36 | W.PN.UPDATE ---
Update Note
Progress Note Update
Pt seen, resting in bed, reports continued depression, intentional OD on large number of Rx Seroquel. Creatinine remains elevated, although improving. Pt states IV fluids held; he is taking adequate fluid po. Antidepressant held for now. Pt
states he was not taking Lexapro consistently. He reports he was being transitioned to a less structured housing option with [facility], but states he still needed more support. Pt reports Seroquel was 'too strong' caused him to feel 'hungover' in
the morning. Pt states he drinks on occasion; denies hx of daily alcohol use or withdrawal. Pt agrees to go to inpatient psych facility; reports he had one prior admission to [facility]- which he found helpful.
Imp: MDD, PTSD, hx of alcohol abuse; S/P serious OD on Rx med
Rec: Inpatient psychiatric facility when medically cleard
will monitor and restart antidepressant as medical/renal status improves
will follow
[2023-11-08 15:00] VITALS: BP 152/108
[2023-11-08 18:09] LABS: Intact PTH 17.7 pg/ml (13.6-85.8)
[2023-11-08 19:10] VITALS: BP 154/99
--- NOTE | 2023-11-08 19:12 | W.PN.HOSP.TC ---
Today's Communication/Plan
-
Continue VENKATA treatment
Inpatient psych placement
Appreciate psychiatry and nephrology
Assessment / Plan
Assessment / Plan
Physical Exam
General: Not in acute distress
HEENT: Normocephalic
Respiratory: Clear to Auscultation Bilaterally
Cardiac: S1/S2 and Regular Rhythm
GI: Soft, Non Tender. Positive bowel sounds.
: Culver catheter with clear yellow urine.
Musculoskeletal: No Cyanosis and No Edema
Skin: Warm and Dry
Neuro: Awake, Alert, Oriented and Nonfocal/grossly intact

Assessment/Plan
Acute Kidney Injury
-Creatinine baseline 1.1, now: 5.7-->3.9-->3.1
-Nephrology consulted, recommendations appreciated
-Continue Culver Catheter
-Status post IV fluids
-No hydronephrosis on renal ultrasound
ARB, HCTZ, and Seroquel overdose
Hypercalcemia
Hyperphosphatemia
-Stop HCTZ
-Continue IVFs
-Low Vitamin D level noted
-PTH level pending
-Nephrology consulted, recommendations appreciated
Depression with Recent Suicide Attempt
-Psychiatry consulted, recommendations appreciated
-No 1:1 sitter needed at this time
-Hold Lexapro and Seroquel until seen by Psych
-Inpatient psych placement
Macrocytic Anemia
-Vitamin B12 noted
-Folate level normal
Prolonged QT
-Monitor on Telemetry
-Monitor QTc through EKGs
-Avoid QT prolonging medications
Essential Hypertension
-Hold lisinopril/HCTZ due to VENKATA
-Hold amlodipine for now - Can resume if BP begins to trend upwards
Asthma, no acute exacerbation
-Continue Dulera
DVT proph: SC Heparin
Code Status: Full Code
Anticipated Discharge: > 48 hours
Subjective/Interval History
-
Date of Service: November 08, 2023
Patient was seen and examined. He reported fruit punch color urine yesterday, but today it is clear.
Objective Data
-
Labs:
Laboratory Results
11/08/23
06:19
WBC 8.8
Hgb 13.5
Hct 40.1
Plt Count 300
Vital Signs:
Vital Signs
Temp Pulse Resp BP Pulse Ox
97.9 F 75 16 152/108 96
11/08/23 15:00 11/08/23 15:00 11/08/23 15:00 11/08/23 15:00 11/08/23 15:00
I&O
11/07/23 11/08/23 11/09/23
06:59 06:59 06:59
Intake Total 1600 / 1600 480 / 480 960 / 960
Output Total 4000 / 4000 1700 / 1700 3700 / 3700
Balance -2400 / -2400 -1220 / -1220 -2740 / -2740
[2023-11-08 23:15] VITALS: BP 144/97
[2023-11-09 03:20] VITALS: BP 130/95
[2023-11-09 06:00] VITALS: BMI 33.1
[2023-11-09 06:53] LABS: Hematocrit 39.6 % (39.0-52.0); Hemoglobin 13.3 g/dL (13.0-18.0); Mean Corp Hgb Conc. 33.6 g/dL (33.0-37.0); Mean Corpuscular Hgb 31.7 pg (27.0-31.0); Mean Corpuscular Volume 94.3 fL (80.0-94.0); Mean Platelet Volume 9.5 fL (7.4-10.4); Platelet Count 302 10^3/uL (130-400); Red Cell Dist. Width 11.9 % (11.5-14.5); White Blood Cell Count 8.7 10^3/uL (4.8-10.8)
[2023-11-09 07:00] VITALS: BP 129/91
[2023-11-09 07:22] LABS: ALT (SGPT) 45 U/L (0-50); AST (SGOT) 28 U/L (17-59); Alkaline Phosphatase 97 U/L (38-126); Blood Urea Nitrogen 41 mg/dl (9-20); Carbon Dioxide 27 mmol/L (22-30); Chloride 99 mmol/L (98-107); Estimated Creatinine Clearance 39 ml/min; Glucose 106 mg/dl (70-99); Magnesium 1.9 mg/dl (1.6-2.3); Potassium 4.4 mmol/L (3.5-5.1); Sodium 138 mmol/L (135-145); Total Bilirubin 0.4 mg/dl (0.2-1.3); Total Protein 6.8 g/dl (6.3-8.2); eGFR 29.13
[2023-11-09] MEDS: SYMBICORT 80/4.5 MCG INHALER 2 PUFF INH ×2 (07:37→17:55)
[2023-11-09] MEDS: PULMICORT 0.5 MG INH (07:37)
[2023-11-09] MEDS: HEPARIN 5000 UNITS SC ×3 (08:59→23:35)
[2023-11-09 09:35] VITALS: BP 135/100
[2023-11-09 10:14] VITALS: BP 135/100; PULSE 76
[2023-11-09 11:00] VITALS: BP 139/89
--- NOTE | 2023-11-09 12:31 | W.PN.NEPH.PH ---
Today's Communication / Plan
-
sign off
Assessment/Plan
-
IMP:
VENKATA
ARB, HCTZ, seroquel overdose
Hypercalcemia
Prolonged QTc
N/V/D - Likely med induced / overdose induced
Intentional Overdose
Major Depression / PTSD
Benign Hypertension
Asthma without Acute Exacerbation
Obesity
Plan:
A/w intentional OD of Losartan-HCTZ and Seroquel on 11/02, presented to ER on 11/04
VENKATA-cr baseline 1.1 in 02/2023, was at 5.7, now down to 2.6
Hemodynamically stable
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
renal US with out hydro , cpk low
we will sign off as GFR continues to improve
-
-
Date of Service: November 09, 2023
CC / HPI / ROS
-
Chief Complaint:
Acute kidney injury
History of Present Illness:
Creatinine down to 2.6
Hemodynamically stable
Review of Systems:
Grossly nonoliguric
Labs
-
Labs:
WBC 8.7 10^3/uL (4.8-10.8) 11/09/23 06:13
RBC 4.20 10^6/uL (4.70-6.10) L 11/09/23 06:13
Hgb 13.3 g/dL (13.0-18.0) 11/09/23 06:13
Hct 39.6 % (39.0-52.0) 11/09/23 06:13
Plt Count 302 10^3/uL (130-400) 11/09/23 06:13
Sodium 138 mmol/L (135-145) 11/09/23 06:13
Potassium 4.4 mmol/L (3.5-5.1) 11/09/23 06:13
Chloride 99 mmol/L (98-107) 11/09/23 06:13
Carbon Dioxide 27 mmol/L (22-30) 11/09/23 06:13
BUN 41 mg/dl (9-20) H 11/09/23 06:13
Creatinine 2.6 mg/dL (0.7-1.3) H 11/09/23 06:13
eGFR 29.13 11/09/23 06:13
Glucose 106 mg/dl (70-99) H 11/09/23 06:13
Calcium 10.0 mg/dl (8.4-10.2) 11/09/23 06:13
Phosphorus 6.4 mg/dl (2.5-4.5) H 11/06/23 06:30
Albumin 4.0 g/dl (3.5-5.0) 11/09/23 06:13
Physical Exam
-
Vital Signs:
Vital Signs
Temp Pulse Resp BP Pulse Ox
98.0 F 74 16 129/91 98
11/09/23 07:00 11/09/23 07:39 11/09/23 07:39 11/09/23 07:00 11/09/23 07:39
Cardiovascular:: Regular rate and rhythm
Respiratory:: Bilateral: CTA
Lung Excursion:: Normal
Abdomen:: Nontender and Soft
Bowel Sounds:: Normal
Extremity Edema:: None: Bilateral:
--- NOTE | 2023-11-09 18:55 | W.PN.HOSP.TC ---
Today's Communication/Plan
-
Resume Amlodipine
VENKATA has been improving
Inpatient psych placement in progress
Assessment / Plan
Assessment / Plan
Physical Exam
General: Not in acute distress
HEENT: Normocephalic
Respiratory: Clear to Auscultation Bilaterally
Cardiac: S1/S2 and Regular Rhythm
GI: Soft, Non Tender. Positive bowel sounds.
: Culvre catheter with clear yellow urine.
Musculoskeletal: No Cyanosis and No Edema
Skin: Warm and Dry
Neuro: Awake, Alert, Oriented and Nonfocal/grossly intact

Assessment/Plan
Acute Kidney Injury
-Creatinine baseline 1.1, now: 5.7-->3.9-->3.1-->2.6
-Nephrology consulted, recommendations appreciated
-Continue Culver Catheter
-Status post IV fluids
-No hydronephrosis on renal ultrasound
ARB, HCTZ, and Seroquel overdose
Hypercalcemia
Hyperphosphatemia
-Stop HCTZ
-Continue IVFs
-Low Vitamin D level noted but calcium was high
-PTH level 17.7
-Nephrology consulted, recommendations appreciated
Depression with Recent Suicide Attempt
-Psychiatry consulted, recommendations appreciated
-No 1:1 sitter needed at this time
-Hold Lexapro and Seroquel, psych following
-Inpatient psych placement
Macrocytic Anemia
-Vitamin B12 noted
-Folate level normal
Prolonged QT
-Monitor on Telemetry
-Monitor QTc through EKGs
-Avoid QT prolonging medications
Essential Hypertension
-Hold lisinopril/HCTZ due to VENKATA
-Resume Amlodipine as blood pressure has begun to trend upwards
Asthma, no acute exacerbation
-Continue Dulera
DVT proph: SC Heparin
Code Status: Full Code
Anticipated Discharge: > 48 hours
Subjective/Interval History
-
Date of Service: November 09, 2023
Patient was seen and examined. He denied any new symptoms or complaints.
Objective Data
-
Labs:
Laboratory Results
11/09/23
06:13
WBC 8.7
Hgb 13.3
Hct 39.6
Plt Count 302
Sodium 138
Potassium 4.4
Chloride 99
Carbon Dioxide 27
BUN 41 H
Creatinine 2.6 H
Glucose 106 H
Calcium 10.0
Total Bilirubin 0.4
AST 28
ALT 45
Alkaline Phosphatase 97
Vital Signs:
Vital Signs
Temp Pulse Resp BP Pulse Ox
98.5 F 95 16 139/89 100
11/09/23 11:00 11/09/23 11:00 11/09/23 11:00 11/09/23 11:00 11/09/23 11:00
I&O
11/08/23 11/09/23 11/10/23
06:59 06:59 06:59
Intake Total 480 / 480 960 / 960 240 / 240
Output Total 1700 / 1700 3700 / 3700 1400 / 1400
Balance -1220 / -1220 -2740 / -2740 -1160 / -1160
[2023-11-09] MEDS: MELATONIN 5 MG PO (21:57)
[2023-11-09 23:00] VITALS: BP 162/95
[2023-11-10 00:03] VITALS: BP 151/92
[2023-11-10 06:00] VITALS: BMI 33.2
[2023-11-10 06:49] LABS: Hematocrit 39.7 % (39.0-52.0); Hemoglobin 13.6 g/dL (13.0-18.0); Mean Corp Hgb Conc. 34.3 g/dL (33.0-37.0); Mean Corpuscular Hgb 31.9 pg (27.0-31.0); Mean Platelet Volume 9.4 fL (7.4-10.4); Platelet Count 320 10^3/uL (130-400); Red Blood Cell Count 4.27 10^6/uL (4.70-6.10); Red Cell Dist. Width 11.9 % (11.5-14.5); White Blood Cell Count 9.8 10^3/uL (4.8-10.8)
[2023-11-10 07:00] VITALS: BP 149/99
[2023-11-10 07:07] LABS: ALT (SGPT) 41 U/L (0-50); AST (SGOT) 24 U/L (17-59); Albumin 4.2 g/dl (3.5-5.0); Alkaline Phosphatase 100 U/L (38-126); Blood Urea Nitrogen 46 mg/dl (9-20); Calcium 10.4 mg/dl (8.4-10.2); Carbon Dioxide 27 mmol/L (22-30); Chloride 98 mmol/L (98-107); Estimated Creatinine Clearance 44 ml/min; Glucose 119 mg/dl (70-99); Sodium 138 mmol/L (135-145); Total Bilirubin 0.5 mg/dl (0.2-1.3); Total Protein 7.1 g/dl (6.3-8.2); eGFR 33.75
[2023-11-10] MEDS: HEPARIN 5000 UNITS SC ×3 (08:24→23:29)
[2023-11-10] MEDS: NORVASC 5 MG PO (08:24)
[2023-11-10] MEDS: SYMBICORT 80/4.5 MCG INHALER 2 PUFF INH (08:25)
[2023-11-10] MEDS: PULMICORT 0.5 MG INH (08:25)
--- NOTE | 2023-11-10 09:23 | W.PN.HOSP.TC ---
Today's Communication/Plan
-
d/c burrows
Assessment / Plan
Assessment / Plan
Gen: NAD, AAOx3.
Eyes: EOMI, PERRLA, no scleral icterus.
Neck: supple.
CV: RRR, +S1/S2, no m/r/g.
Resp: CTAB, no rales, wheezes, or rhonchi.
Abd: +BS, soft, NT, ND
Skin: No rashes.
Neuro: CN 2-12 intact, non-focal.
Psych: Normal mood and affect.
Renal U/S: Normal appearance of both kidneys. Bladder is not distended. Left ureteral jet is visualized, but right ureteral jet is not visualized. Incidental note of cholelithiasis.
Acute Kidney Injury:
-due to ARB/HCTZ O/D
-renal ultrasound unremarkable as above
-s/p IVFs
-renal following
-d/c Burrows Catheter
-Cr has improved from 5.8 to 2.3
Essential Hypertension:
-Holding ARB/HCTZ due to VENKATA
-cont Norvasc
Depression with Recent Suicide Attempt
-Psychiatry consulted, recommendations appreciated
-No 1:1 sitter needed at this time
-Holding Lexapro and Seroquel
-Inpatient psych placement
Other problems:
Macrocytic Anemia: B12/folate normal
Prolonged QTc: ECG today with QTc 466ms (improved from 496ms prior)
Hypercalcemia, mild
Hyperphosphatemia: recheck Phos
Asthma: Continue Dulera
FULL/Heparin
Medically clear for discharge. Case management aware.
Anticipated Discharge: Within 24 hours
Subjective/Interval History
-
Date of Service: November 10, 2023
No new complaints.
Objective Data
-
Labs:
Laboratory Results
11/10/23
06:18
WBC 9.8
Hgb 13.6
Hct 39.7
Plt Count 320
Sodium 138
Potassium 4.0
Chloride 98
Carbon Dioxide 27
BUN 46 H
Creatinine 2.3 H
Glucose 119 H
Calcium 10.4 H
Total Bilirubin 0.5
AST 24
ALT 41
Alkaline Phosphatase 100
Vital Signs:
Vital Signs
Temp Pulse Resp BP Pulse Ox
97.6 F 84 16 149/99 97
11/10/23 07:00 11/10/23 08:28 11/10/23 08:28 11/10/23 07:00 11/10/23 08:28
I&O
11/09/23 11/10/23 11/11/23
06:59 06:59 06:59
Intake Total 960 / 960 720 / 720
Output Total 3700 / 3700 4000 / 4000
Balance -2740 / -2740 -3280 / -3280
[2023-11-10 10:27] LABS: Phosphorus 5.2 mg/dl (2.5-4.5)
--- NOTE | 2023-11-10 11:01 | CM ---
Addendum entered by VANESSA Joe 11/10/23 17:15:
Received call from Jt in admissions at [facility], who confirmed that he has a bed for patient. He stated that that he will obtain the authorization through [employer].
Will need to fax [phone] over to [facility] after patient signs it.
Attending updated.
Placed a call back to Jt in admissions as patient will be medically cleared in the am. He confirmed that he will hold the bed for patient so that he can transfer in the morning.
Original Note:
Received confirmation from attending that patient is medically stable. Will send referrals to psych facilities.
Plan: Case management will continue to follow and assist with discharge planning. Psych placement.
--- NOTE | 2023-11-10 14:18 | W.PN.UPDATE ---
Update Note
Progress Note Update
Pt seen, discussed with nursing staff. Pt alert, calm, cooperative, more active, doing hygiene. Pt states he was able to shave and feels better. Creatinine improving, but remains elevated. QTc 466- improving. Pt reports fatigue and some nausea.
Mood dysphoric. Pt prefers blinds down and curtain drawn. No agitation. Pt remains agreeable to inpatient psych placement when medically cleared. Pt ambivalent about restarting Lexapro, was not really taking it prior to OD.
Imp: MDD, PTSD, hx of alcohol abuse; S/P serious OD on Rx med
Rec: Inpatient psychiatric facility when medically cleared
will monitor and restart antidepressant as medical/renal status improves, still holding off for now
will follow
[2023-11-10 15:00] VITALS: BP 140/76
--- NOTE | 2023-11-10 15:01 | CM ---
Addendum entered by Laura Unger 11/10/23 15:29:
Met with patient bedside. [facility] counselor Eliseo in with patient.
Patient has reached out to his [facility] case specialist Deysi (also his primary contact) to see if they will let home come back after treatment.
patient aware multiple referrals sent and agreeable to treatment.
Patient stated he has no family that will help him and no friends locally that can help.
TC back from [facility], the directors at [facility] are reviewing patients case to see if they will accept him back after treatment.
She is also looking into other options for patient.
They have placed him on multiple residential lists awaiting openings, he is on the priority list for the [facility], but there are no anticipated openings in the near future.
Deysi aware getting into a treatment center could be difficult due to homlessness and will update the directors.
She also suggested if patient gets into a treatment facility that the facility refer him back to [facility] to see if they will accept him back.
TC back from [facility], they are unable to accept, their MD is recommending medical psych. ([facility] is a freestanding facility).
Addendum entered by Laura Unger 11/10/23 15:16:
TC back from Bridget, from [facility]- they are reviewing.
Original Note:
Left VM for patients outpatient [facility] case specialist Deysi Krishnamurthy re asistance with housing. Await TCB.
[facility]errals [facility] to [facility], [facility], [facility], [facility], [facility], and [facility].
Plan: inpatient behavioral health, under a 201, once bed found and insurance auth obtained.
[2023-11-10] MEDS: SYMBICORT 80/4.5 MCG INHALER INH (20:01)
[2023-11-10] MEDS: MELATONIN 5 MG PO (22:32)
[2023-11-10 23:00] VITALS: BP 141/90
[2023-11-11 06:00] VITALS: BMI 32.9
[2023-11-11 07:09] LABS: Hematocrit 38.6 % (39.0-52.0); Hemoglobin 13.5 g/dL (13.0-18.0); Mean Corpuscular Hgb 31.7 pg (27.0-31.0); Mean Corpuscular Volume 90.6 fL (80.0-94.0); Mean Platelet Volume 9.3 fL (7.4-10.4); Platelet Count 340 10^3/uL (130-400); Red Blood Cell Count 4.26 10^6/uL (4.70-6.10); Red Cell Dist. Width 11.9 % (11.5-14.5); White Blood Cell Count 8.6 10^3/uL (4.8-10.8)
[2023-11-11 07:31] VITALS: BP 143/96
[2023-11-11 07:39] LABS: ALT (SGPT) 31 U/L (0-50); AST (SGOT) 21 U/L (17-59); Albumin 4.1 g/dl (3.5-5.0); Alkaline Phosphatase 94 U/L (38-126); Blood Urea Nitrogen 41 mg/dl (9-20); Calcium 9.9 mg/dl (8.4-10.2); Carbon Dioxide 27 mmol/L (22-30); Chloride 100 mmol/L (98-107); Estimated Creatinine Clearance 53 ml/min; Glucose 102 mg/dl (70-99); Potassium 4.4 mmol/L (3.5-5.1); Sodium 138 mmol/L (135-145); Total Bilirubin 0.5 mg/dl (0.2-1.3); Total Protein 6.8 g/dl (6.3-8.2); eGFR 42.44
[2023-11-11] MEDS: PULMICORT 0.5 MG INH (08:01)
[2023-11-11] MEDS: SYMBICORT 80/4.5 MCG INHALER 2 PUFF INH ×2 (08:01→19:16)
[2023-11-11] MEDS: NORVASC 5 MG PO (08:13)
[2023-11-11] MEDS: HEPARIN 5000 UNITS SC ×2 (08:13→15:22)
--- NOTE | 2023-11-11 10:09 | W.PN.HOSP.TC ---
Today's Communication/Plan
-
d/c
Assessment / Plan
Assessment / Plan
Gen: NAD, AAOx3.
Eyes: EOMI, PERRLA, no scleral icterus.
Neck: supple.
CV: Remains RRR, +S1/S2, no m/r/g.
Resp: Remains CTAB, no rales, wheezes, or rhonchi.
Abd: Remains +BS, soft, NT, ND
Skin: No rashes.
Neuro: CN 2-12 intact, non-focal.
Psych: Normal mood and affect.
Renal U/S: Normal appearance of both kidneys. Bladder is not distended. Left ureteral jet is visualized, but right ureteral jet is not visualized. Incidental note of cholelithiasis.
Acute Kidney Injury:
-due to ARB/HCTZ O/D
-renal ultrasound unremarkable as above
-s/p IVFs
-renal following
-d/c Culver Catheter
-Cr has improved from 5.8 to 1.9
Essential Hypertension:
-Holding ARB/HCTZ due to VENKATA
-cont Norvasc
Depression with Recent Suicide Attempt
-Psychiatry consulted, recommendations appreciated
-No 1:1 sitter needed at this time
-Holding Lexapro and Seroquel
-Inpatient psych placement
Other problems:
Macrocytic Anemia: B12/folate normal
Prolonged QTc: ECG today with QTc 466ms (improved from 496ms prior)
Hypercalcemia, mild
Hyperphosphatemia: recheck Phos
Asthma: Continue Dulera
FULL/Heparin
Total time spent on d/c = 31 min. This included today's physical exam, progress note, review of laboratory and diagnostic data, preparation of discharge documents and prescriptions, and discussions about the pt's hospital course and discharge plan
with the patient and other medical engineer involved in the patient's care.
Anticipated Discharge: Today
Subjective/Interval History
-
Date of Service: November 11, 2023
No new complaints
Objective Data
-
Labs:
Laboratory Results
11/11/23
06:25
WBC 8.6
Hgb 13.5
Hct 38.6 L
Plt Count 340
Sodium 138
Potassium 4.4
Chloride 100
Carbon Dioxide 27
BUN 41 H
Creatinine 1.9 H
Glucose 102 H
Calcium 9.9
Total Bilirubin 0.5
AST 21
ALT 31
Alkaline Phosphatase 94
Vital Signs:
Vital Signs
Temp Pulse Resp BP Pulse Ox
98.2 F 73 16 143/96 98
11/11/23 07:31 11/11/23 08:13 11/11/23 08:05 11/11/23 08:13 11/11/23 08:05
I&O
11/10/23 11/11/23 11/12/23
06:59 06:59 06:59
Intake Total 720 / 720 2680 / 2680
Output Total 4000 / 4000
Balance -3280 / -3280 2680 / 2680
--- NOTE | 2023-11-11 10:23 | CM ---
Addendum entered by VANESSA Joe 11/11/23 10:28:
Address to facility is [address] [place] (this address was provided by Holly in admissions).
Original Note:
Reviewed chart, spoke with Holly in admissions at [facility] who confirmed that she could take patient today. Fax # is [phone]
She stated that she needs the 201 signed by Psychiatrist and patient. Spoke with Psychiatry and he confirmed that he can complete paperwork.
Will complete medical necessity and transfer sheet.
Plan: Case management will continue to follow and assist with discharge planning. [facility] today.
--- NOTE | 2023-11-11 13:54 | W.DCSUMMARY ---
Discharge Summary
Discharge Data
Date of Admission: 11/05/23
Date of Discharge: 11/11/23
-
Pending Results: No
Hospital Course
Primary diagnoses:
Acute kidney injury due to overdose with angiotensin receptor estella and hydrochlorothiazide
Secondary diagnoses:
Essential Hypertension
Depression with Recent Suicide Attempt
Macrocytic Anemia
Prolonged QTc
Hypercalcemia
Hyperphosphatemia
Asthma
Consultants:
Psychiatry
Nephrology
Imaging:
Renal U/S: Normal appearance of both kidneys. Bladder is not distended. Left ureteral jet is visualized, but right ureteral jet is not visualized. Incidental note of cholelithiasis.
Hospital course: 48-year-old male who presented to the ER requesting voluntary psychiatric evaluation as outlined in the H&P done on admission. On admission the patient notes that he took a large number of pills in a suicide attempt. Most notably
he took 270 tablets of losartan/hydrochlorothiazide and 40 tabs of Seroquel. The patient had acute kidney injury due to the aforementioned overdose. Renal ultrasound was unremarkable as above. The patient was treated with IV fluids. He was seen
by nephrology. He had a Culver catheter. His creatinine improved from 5.8-1.9. Nephrology signed off. The patient was discharged in medically stable condition to inpatient psychiatric facility
Discharge Plan
-
Patient Disposition: Psych Facility
Discharge Diagnosis/Procedures: Acute kidney injury due to overdose with angiotensin receptor estella and hydrochlorothiazide
Condition: Good
Diet: 2 Gram Sodium
Activity: No restrictions
Driving Restrictions: As prior to admission
Blood Work: BMP and CBC in 1 week, prescription from PCP
Referrals:
Samir Ayala MD [Family Provider] - in less than 1 week
Prescriptions:
Continued
albuterol sulfate 1 PUFF HFA aerosol inhaler
2 puff inhalation R Q4HPRN PRN (Reason: sob)
fluticasone propionate 1 SPRAY spray,suspension
1 spray intranasal DAILYPRN PRN (Reason: congestion)
Dulera 100-5 mcg/actuation Hfa Aerosol Inhaler
2 puff INHALATION R BID
budesonide 0.5 MG/2 ML suspension for nebulization
0.5 mg inhalation R DAILY
Changed
amlodipine 5 MG tablet
10 mg PO DAILY Qty: 0 0RF
Discontinued
quetiapine 25 mg Tablet
25 mg PO HS
losartan-hydrochlorothiazide 100-25 mg Tablet
1 tab PO DAILY
escitalopram oxalate 10 mg Tablet
10 mg PO DAILY
Discharge Orders:
Discharge Patient (As Directed); Ordered 11/11/23
Ordered By: Conor Chambers
Discharge Date and Time
Print Language: UKRAINIAN
--- NOTE | 2023-11-11 14:07 | W.PN.UPDATE ---
Update Note
Progress Note Update
Pt seen, signed voluntary consent for inpatient psych treatment. Pt alert, calm, cooperative, with dysphoric affect. Creatinine continues to trend toward normal level, 1.9 today. Pt asked to have his outpatient case technician informed of his
progress and planned placement.
Imp: MDD, PTSD, hx of alcohol abuse; S/P serious OD on Rx med
Rec: Inpatient psychiatric facility when medically cleared. Continue to hold off antidepressant until evaluated at psychiatric facility
[2023-11-11 14:48] VITALS: BP 154/101
[2023-11-11 21:15] VITALS: BP 158/89
== END 2023-11-11 21:50 | DRG 683 ==
LOC: 3 WEST ACU 20:50
PROVIDERS: Emergency Medicine; Hospitalist; Physician Assistant Medical; Psychiatry & Neurology Psychiatry; ADMITTING PHYSICIAN Hospitalist; ATTENDING PHYSICIAN Internal Medicine; CONSULT PHYSICIAN Internal Medicine; CONSULT PHYSICIAN Psychiatry & Neurology Psychiatry; EMERGENCY PHYSICIAN Emergency Medicine; FAMILY PHYSICIAN Family Medicine
DX: N17.0 Acute kidney failure with tubular necrosis (principal); R45.851 Suicidal ideations; T43.592A Poisoning by other antipsychotics and neuroleptics, intentional self-harm, initial encounter; I10 Essential (primary) hypertension; F32.9 Major depressive disorder, single episode, unspecified; D53.9 Nutritional anemia, unspecified; R94.31 Abnormal electrocardiogram [ECG] [EKG]; E83.52 Hypercalcemia; E83.39 Other disorders of phosphorus metabolism; J45.909 Unspecified asthma, uncomplicated
CPT/HCPCS: 76770; 80048; 80053; 80143; 80179; 80306; 81003; 81015; 81099; 82077; 82306; 82550; 82570; 82607; 82746; 83735; 83970; 84100; 84156; 84300; 85025; 85027; 85730; 87811; 93005; 94640; 96360; 97116; 97161; 97166; 99285; 99406